=== PATIENT | female | born 1955 | race Caucasian/White ===

== ENCOUNTER 2016-06-26 11:23 | Emergency (ER) | payer OTHER ==
[2016-06-26 11:35] VITALS: BP 123/64
--- NOTE | 2016-06-26 12:05 | UC ---
Throat Pain/Nasal Hamzah HPI - HPI Summary HPI Summary: sinus congestion and cough for 2 weeks, feels lots of pressure in her head and around her eyes. - History of Current Complaint Chief Complaint: UCGeneralIllness Stated Complaint: sinus complaint Time Seen by Provider: 06/26/16 11:47 Hx Obtained From: Patient Hx Last Menstrual Period: Years ago. ?: No Onset/Duration: Sudden Onset, Lasting Weeks Severity: Moderate Pain Intensity: 6 Pain Scale Used: 0-10 Numeric Cough: Nonproductive Associated Signs & Symptoms: Positive: Wheezing, Hoarseness, Sinus Discomfort - Allergies/Home Medications Allergies/Adverse Reactions: Allergies Allergy/AdvReac Type Severity Reaction Status Date / Time Penicillins Allergy Intermediate RASH, FEVER Verified 11/24/15 15:14 Sulfa Drugs Allergy RASH , GI Verified 11/24/15 15:14 UPSET BEE STINGS Allergy Severe LOCAL Uncoded 11/24/15 15:14 REACTION, SISTER HAD ANAPHLACTIC REACTION Home Medications: Home Medications Bupropion HCl [Bupropion HCl ER] 75 mg PO DAILY 06/26/16 [History Confirmed ] PMH/Surg Hx/FS Hx/Imm Hx Previously Healthy: Yes Endocrine History Of: Denies: Diabetes, Thyroid Disease, Hyperthyroidism, Hypothyroidism, Dyslipidemia Cardiovascular History Of: Denies: Cardiac Disorders, Hypertension, Pacemaker/ICD, Myocardial Infarction , Congestive Heart Failure, Atrial Fibrillation, Deep Vein Thrombosis, Bleeding Disorders Respiratory History Of: Denies: COPD, Asthma, Bronchitis, Pneumonia, Pulmonary Embolism GI/ History Of: Denies: Gastroesophageal Reflux, Ulcer, Gastrointestinal Bleed, Gall Bladder Disease, Kidney Stones, Diverticulitis, Renal Disease, Urosepsis Neurological History Of: Denies: TIA, CVA, Dementia, Seizures, Migraine Psychological History Of: Denies: Anxiety, Depression, Bipolar Disorder, Schizophrenia, Post Traumatic Stress Disorder Cancer History Of: Denies: Lung Cancer, Colorectal Cancer, Breast Cancer, Prostate Cancer, Cervical Cancer - Surgical History Surgical History: Yes Surgery Procedure, Year, and Place: GALL BLADDER REMOVAL - Family History Known Family History: Positive: Cardiac Disease, Hypertension - Social History Alcohol Use: Occasionally Substance Use Type: None Smoking Status (MU): Never Smoked Tobacco Review of Systems Constitutional: Fatigue Skin: Negative Eyes: Negative ENT: Ear Ache Respiratory: Cough Cardiovascular: Negative Gastrointestinal: Negative Genitourinary: Negative Motor: Negative Neurovascular: Negative Musculoskeletal: Negative Neurological: Headache Psychological: Negative All Other Systems Reviewed And Are Negative: Yes Physical Exam Triage Information Reviewed: Yes Appearance: Well-Nourished, Ill-Appearing, Pain Distress Vital Signs: Initial Vital Signs Temp 98.4 F 06/26/16 11:31 Pulse 62 06/26/16 11:31 Resp 16 06/26/16 11:31 BP 123/64 06/26/16 11:31 Pulse Ox 100 06/26/16 11:31 Vital Signs Reviewed: Yes Eye Exam: Normal Eyes: Positive: Conjunctiva Clear ENT: Positive: Pharyngeal erythema, Nasal congestion, Nasal drainage, TMs normal Dental Exam: Normal Neck exam: Normal Neck: Positive: Supple, Nontender, No Lymphadenopathy Respiratory: Positive: Chest non-tender, Normal breath sounds, Wheezing, Inspiration, Other: - cough Cardiovascular Exam: Normal Cardiovascular: Positive: RRR, No Murmur, Pulses Normal Abdominal Exam: Normal Abdomen Description: Positive: Nontender, No Organomegaly, Soft Bowel Sounds: Positive: Present Musculoskeletal Exam: Normal Musculoskeletal: Positive: Strength Intact, ROM Intact, No Edema Neurological Exam: Normal Neurological: Positive: Alert, Muscle Tone Normal Psychological Exam: Normal Skin Exam: Normal Throat Pain/Nasal Course/Dx - Course Course Of Treatment: hx obtained, exam performed, medication prescribed for sinusitis and bronchospasm - Differential Dx/Diagnosis Differential Diagnosis/HQI/PQRI: Influenza, Laryngitis, Otitis Media, Pharyngitis, Sinusitis, Tonsillitis, URI Provider Diagnoses: sinusitis. bronchospasm Discharge - Discharge Plan Condition: Stable Disposition: HOME Prescriptions: Cephalexin CAP* [Keflex CAP*] 500 mg PO BID #14 cap predniSONE TAB* [Deltasone TAB*] 20 mg PO DAILY #5 tab Patient Education Materials: Sinusitis (ED) Additional Instructions: take the medication as prescribed. Increase your fluid intake and get rest, Ibuprofen and tylenol for pain and fever.
== END 2016-06-26 12:15 | disposition home or self-care (01) ==
LOC: UCCORT 11:23
DX: J32.9 Chronic sinusitis, unspecified (principal); J98.01 Acute bronchospasm; Z88.2 Allergy status to sulfonamides; Z88.0 Allergy status to penicillin; Z90.49 Acquired absence of other specified parts of digestive tract
CPT/HCPCS: 99212; G0463

== ENCOUNTER 2017-09-07 09:34 | Emergency (ER) | payer OTHER ==
[2017-09-07 10:24] VITALS: BP 122/56
[2017-09-07] MEDS ORDERED: DOXYcycline CAP(*) 100 MG PO ONE (10:39)
--- NOTE | 2017-09-07 10:51 | ED ---
Bite Injury/Animal - HPI Summary HPI Summary: 62 yo WF p/w tick bite, removed it with forcep at home this AM but cannot recall when she may have been bitten - History of Current Complaint Chief Complaint: FERNANDOkin Stated Complaint: TICK BITE Time Seen by Provider: 09/07/17 09:53 Hx Obtained From: Patient Hx Last Menstrual Period: Years ago. Onset of Injury: Still Present Hx of Bite: Unprovoked Severity Initially: Moderate Severity Currently: Moderate Pain Intensity: 2 - Allergies/Home Medications Allergies/Adverse Reactions: Allergies Allergy/AdvReac Type Severity Reaction Status Date / Time Penicillins Allergy Rash Verified 09/07/17 10:20 Sulfa (Sulfonamide Allergy Rash Verified 09/07/17 10:20 Antibiotics) BEE STINGS Allergy Severe LOCAL Uncoded 11/24/15 15:14 REACTION, SISTER HAD ANAPHLACTIC REACTION Home Medications: Home Medications NK [No Home Medications Reported] 09/07/17 [History Confirmed 09/07/17] PMH/Surg Hx/FS Hx/Imm Hx Previously Healthy: Yes Endocrine/Hematology History: Denies: Hx Diabetes, Hx Thyroid Disease Cardiovascular History: Denies: Hx Congestive Heart Failure, Hx Deep Vein Thrombosis, Hx Hypertension , Hx Myocardial Infarction, Hx Pacemaker/ICD Respiratory History: Denies: Hx Asthma, Hx Chronic Obstructive Pulmonary Disease (COPD), Hx Lung Cancer, Hx Pneumonia, Hx Pulmonary Embolism GI History: Denies: Hx Gall Bladder Disease, Hx Gastrointestinal Bleed, Hx Ulcer, Hx Urosepsis History: Denies: Hx Kidney Stones, Hx Renal Disease Neurological History: Denies: Hx Dementia, Hx Migraine, Hx Seizures, Hx Transient Ischemic Attacks (TIA) Psychiatric History: Denies: Hx Anxiety, Hx Depression, Hx Schizophrenia, Hx Bipolar Disorder - Surgical History Surgery Procedure, Year, and Place: GALL BLADDER REMOVAL Infectious Disease History: No Infectious Disease History: Denies: Hx Clostridium Difficile, Hx Hepatitis, Hx Human Immunodeficiency Virus (HIV), Hx of Known/Suspected MRSA, Hx Shingles, Hx Tuberculosis, Hx Known/ Suspected VRE, Hx Known/Suspected VRSA, History Other Infectious Disease, Traveled Outside the [place] in Last 30 Days - Family History Known Family History: Positive: Cardiac Disease, Hypertension - Social History Alcohol Use: Occasionally Substance Use Type: Reports: None Smoking Status (MU): Never Smoked Tobacco Review of Systems Constitutional: Negative Eyes: Negative ENT: Negative Cardiovascular: Negative Respiratory: Negative Gastrointestinal: Negative Genitourinary: Negative Musculoskeletal: Negative Positive: Other - tick bite on left hip Neurological: Negative Psychological: Normal All Other Systems Reviewed And Are Negative: Yes Physical Exam Triage Information Reviewed: Yes Vital Signs On Initial Exam: Initial Vitals Temp Pulse Resp BP Pulse Ox 36.9 C 62 17 122/56 100 09/07/17 10:21 09/07/17 10:21 09/07/17 10:21 09/07/17 10:21 09/07/17 10:21 Vital Signs Reviewed: Yes Appearance: Positive: Well-Appearing Skin: Positive: Warm, Skin Color Reflects Adequate Perfusion, Other - erythematous skin lesion diameter 1x1cm on left lateral hip w/o remnant of insect parts in skin Diagnostics - Vital Signs Vital Signs Temp Pulse Resp BP Pulse Ox 09/07/17 10:21 36.9 C 62 17 122/56 100 - Laboratory Lab Statement: Any lab studies that have been ordered have been reviewed, and results considered in the medical decision making process. Bite Injury Course/Dx - Course Assessment/Plan: NOT known of the timing of bite but appears to be less than 72 hrs so one dose of Doxy PO administered x1 in UC - Diagnoses Provider Diagnosis: Tick bite of left hip Discharge - Sign-Out/Discharge Documenting (check all that apply): Discharge/Admit/Transfer - Discharge Plan Condition: Stable Disposition: HOME Patient Education Materials: Tick Bite (ED) Referrals: Farzana Du MD [Primary Care Provider] - Additional Instructions: follow up with PCP within 3 weeks for lyme serology - Billing Disposition and Condition Condition: STABLE Disposition: HOME
== END 2017-09-07 10:57 | disposition home or self-care (01) ==
LOC: UCCORT 09:34
DX: S70.262A Insect bite (nonvenomous), left hip, initial encounter (principal); W57.XXXA Bitten or stung by nonvenomous insect and other nonvenomous arthropods, initial encounter; Y93.9 Activity, unspecified; Y92.9 Unspecified place or not applicable; Z88.0 Allergy status to penicillin; Z88.2 Allergy status to sulfonamides; Z91.030 Bee allergy status
CPT/HCPCS: 99212; A9270-GY; G0463